=== PATIENT | female | born 1935 | race Caucasian/White ===

== ENCOUNTER → 2017-04-06 | Outpatient (CLI) | payer MEDICARE ==
[~2017-04-06] MED LIST: ALDACTONE50 MG PO; DETROL LA 4 MG C4 MG PO; K-TAB ER10 MEQ PO; KLONOPIN TAB 00.5 MG PO; LASIX40 MG PO; LINZESS290 MCG PO; LOPRESSOR 25 MG25 MG PO; PRAVASTATIN SOD40 MG PO; PROTONIX40 MG PO; REMERON30 MG PO; SYNTHROID50 MCG PO; VITAMIN D250000 UNIT PO
== END ==
LOC: CARD REHAB 03-14 13:00
DX: I50.30 Unspecified diastolic (congestive) heart failure (principal); R06.02 Shortness of breath

== ENCOUNTER → 2017-04-13 | Outpatient (CLI) | payer MEDICARE | LOC: CT 03-24 09:00 | DX: R06.00 Dyspnea, unspecified (principal); Z98.890 Other specified postprocedural states | CPT/HCPCS: 36415; 71250; 82565; 84520 ==

== ENCOUNTER → 2017-07-11 | Outpatient (CLI) | payer MEDICARE | LOC: KOH-I 16:01 | DX: I10 Essential (primary) hypertension (principal) | CPT/HCPCS: 73630 ==

== ENCOUNTER → 2021-09-06 | Outpatient (CLI) | payer MEDICARE | LOC: LAB 13:55 | DX: J96.11 Chronic respiratory failure with hypoxia (principal); K44.9 Diaphragmatic hernia without obstruction or gangrene; R91.8 Other nonspecific abnormal finding of lung field | CPT/HCPCS: 71046 ==